=== PATIENT | male | born 1955 | race Caucasian/White ===

== ENCOUNTER 2017-05-26 13:37 | Day surgery (SDC) | payer BC ==
--- NOTE | 2017-05-14 07:41 | HP ---
CC: Dr. Deric Meza * ADMISSION HISTORY AND PHYSICAL: DATE OF ADMISSION/SURGERY: 05/26/17 ATTENDING SURGEON: Quincy Nava MD * (DICTATED BY FIDE CHILDS) PRIMARY CARE PHYSICIAN: Deric Meza MD CHIEF COMPLAINT: Umbilical hernia. HISTORY OF PRESENT ILLNESS: Mr. Holbrook is a pleasant 61-year-old gentleman, who was seen in the office last months in consideration for umbilical hernia repair. The patient apparently had his umbilical hernia for approximately 2 years now. He has been planning for watchful waiting until recently when the patient described being more bothered by his umbilical hernia. He reports that the hernia does not feel any bigger than it has been in the last year or so; however, he experiences occasional discomfort especially upon bending over or lifting heavy objects. That pain is usually alleviated by rest and denies any signs or symptoms of incarceration lately. He was seen recently by his primary care doctor, who encouraged him to get the hernia fixed if he experiences any worsening symptoms, for which he was seen by Dr. Nava last month to consider hernia repair. Since his last office visit, he denies any worsening symptoms. He denies any nausea, vomiting, abdominal distention, or changes in the bowel habits. He otherwise is a relatively active upper middle-age gentleman, who does a lot of workout outdoors. PAST MEDICAL HISTORY: Significant for hyperlipidemia and remote history of heart murmur and palpitation for which he had a complete cardiac workup 2 years ago with no remarkable findings. He denies any recent palpitation or chest pain. PAST SURGICAL HISTORY: Significant for tonsillectomy as a child and left ankle surgery back in 1998 as well as knee arthroscopy with meniscus repair last year. CURRENT MEDICATIONS: His medications at home include: 1. Atorvastatin 10 mg p.o. q. day. 2. Multivitamin 1 tablet q. day. ALLERGIES: He has no known drug allergies. FAMILY HISTORY: Noncontributory. SOCIAL HISTORY: The patient has never smoked. He rarely consumes alcohol and caffeine intake is minimal. REVIEW OF SYSTEMS: See HPI, otherwise negative. He denies any headache, dizziness, blurred vision, or double vision. No sore throat, cough, wheezing, chest pain, or shortness of breath. He denies any back pain, flank pain, dysuria, hematuria, or urinary frequency. He admits to umbilical hernia with occasional pain but denies any increased bulge, changes in the bowel habits, nausea, vomiting. No fever, chills, weight loss, or night sweats. PHYSICAL EXAMINATION GENERAL: He is a pleasant, healthy-appearing, 61-year-old gentleman in no acute distress or discomfort. VITAL SIGNS: Revealed blood pressure of 142/72, respiration of 16, temperature of 98.3, pulse of 60, and he is 5 feet 10 inches tall, weighs 160 pounds with BMI of 23. HEENT: Head is normocephalic, atraumatic. Sclerae anicteric. PERRLA. EOMs intact. Oropharynx is pink and moist with no exudate. NECK: Supple. Trachea midline. No cervical adenopathy noted. LUNGS: Clear to auscultation bilaterally. HEART: Regular rate and rhythm. Normal S1 and S2 without rubs, murmurs, or gallops. BACK: With normal curvature. No CVA tenderness. ABDOMEN: Soft, nontender, and nondistended. The patient was examined in supine position and noted to have a small umbilical hernia measuring approximately 2 cm with fatty contents, appears to be easily reducible. There was no tenderness noted upon reducing the hernia. There is no overlying skin changes or other hernias noted. No masses or hepatosplenomegaly. EXTREMITIES: Without cyanosis, clubbing, or edema. NEUROLOGIC: Grossly intact. RECTAL EXAM: Deferred at this time. IMPRESSION: A 61-year-old gentleman with longstanding history of umbilical hernia with worsening pain in the past few months. PLAN: We went on and discussed with the patient proceeding with umbilical hernia repair. He is scheduled to have his hernia repaired by Dr. Nava on with possible use of mesh. The rationale, indication, risks, and benefits of surgery were discussed with him today. Risks include but not limited to infection, bleeding, or injury to adjacent structures. He appears to understand and wishes to proceed as outlined. He already has a script for [place] to use as needed for pain for his postoperative period and we will see him back in the office a week after his surgery for a routine followup. FIDE CHILDS [id number]/[facility] #: [id number] [facility]PITALBasilio
[~2017-05-26 13:37] MED LIST: Buffered Lidocaine 0.9% SYRIN* 5 ML/SYR SYRINGE INTRADERM ONE; DiMENhydriNATE IV* 50 MG/ML VIAL IV PUSH PRN; Famotidine IV* 10 MG/ML 2 ML (20 mg) IV ONE; Morphine INJ* 2 MG/ML 1 ML CARPUJECT IV PRN; Naloxone* 0.4 MG/ML 1 ML VIAL IV PRN; PROCHLORPERAZINE INJ 5 MG/ML 2 ML VIAL IV PRN; fentaNYL* 50 MCG/ML 2 ML VIAL (100 MCG VIAL) IV PRN; oxyCODONE/Acetamin 5/325 MG* TAB PO PRN
[2017-05-26] MEDS ORDERED: ceFAZolin 1 GM in Dextrose (*) 2 GM/100 ML BAG IVPB ONE (13:44)
[2017-05-26] MEDS ORDERED: Famotidine IV* 10 MG/ML 2 ML (20 mg) ONE (13:44)
[2017-05-26] MEDS ORDERED: KETAMINE HCL* 50 MG/ML 10 ML VIAL ONE (14:50)
[2017-05-26] MEDS ORDERED: Midazolam* 1 MG/ML 10 ML VIAL (10 MG) ONE (14:50)
[2017-05-26] MEDS ORDERED: fentaNYL* 50 MCG/ML 2 ML VIAL (100 MCG VIAL) ONE (14:50)
[2017-05-26] MEDS ORDERED: Lidocaine 1% MPF wEPI 200,000* 30 ML SDV ONE (15:45)
[2017-05-26] MEDS ORDERED: Bacitracin OINTMENT* 0.5% 0.5 oz TUBE ONE (15:50)
[2017-05-26] MEDS ORDERED: Dexamethasone IV* 4 MG/ML 1 ML (4 MG) ONE (16:54)
[2017-05-26] MEDS ORDERED: Propofol* 10 MG/ML 20 ML BTL IV PUSH ONE (16:54)
[2017-05-26] MEDS ORDERED: Lidocaine 2% PF * 5 ML VIAL ONE (16:54)
[2017-05-26] MEDS ORDERED: Ondansetron INJ* 2 MG/ML VIAL ONE (16:54)
[2017-05-26] MEDS ORDERED: Ketorolac INJ* 30 MG/ML 1 ML VIAL ONE (17:00)
--- NOTE | 2017-05-26 17:19 | OP ---
Operative Report - Blank - Operative Report Date of Operation: 05/26/17 Note: Preop Dx: umbilical hernia Postop Dx: same Procedure: open repair umbilical hernia (primary repair) Anesthesia: local, MAC Surgeon: Brandy Asst: FIDE Navarro Fluids: 800 ml EBL: 20 ml Drains: none Specimen: none Findings: dictated
[2017-05-26 18:05] VITALS: BP 140/84
[2017-05-26] MEDS ORDERED: HYDROcodone/ACETAMIN 5-325 MG* 1 TAB ONE (18:12)
--- NOTE | 2017-06-17 03:01 | OP ---
CC: Dr. Sabino Cano * DATE OF OPERATION: 05/26/17 - SDS DATE OF : 53 SURGEON: Quincy Nava MD NURSE TRANSITION: FIED Price ANESTHESIA: Local MAC anesthesia. PRE-OP DIAGNOSIS: Umbilical hernia. POST-OP DIAGNOSIS: Umbilical hernia. OPERATIVE PROCEDURE: Open repair of umbilical hernia. IV FLUIDS: 800. ESTIMATED BLOOD LOSS: 20 cc. DRAINS: None. SPECIMEN: None. DESCRIPTION OF PROCEDURE: The patient was identified in the preoperative area. Consent signed. The patient was marked. He was taken to the operating room, placed on the operating table in supine position. Preoperative antibiotics given. Sequential devices were placed on bilateral lower extremities. General anesthesia was induced. The patient's abdomen was prepped and draped in the standard surgical fashion. Time-out was performed. The umbilical hernia was identified. An infraumbilical incision was made. This was deepened down to the anterior fascia inferiorly. We isolated the umbilical skin around the [place] drain and sharply dissected this from the hernia sac. Hernia sac was ligated, we did not send it for specimen. The defect appeared approximately 1 cm and made a decision to primarily close this. We utilized 0 Prolene sutures, utilizing 4 sutures in all and these were tied at the end in a simple fashion. The wound was then irrigated. Hemostasis achieved. Umbilical skin was tacked down with 2-0 Vicryl sutures and then we closed the skin with 3-0 Vicryl sutures subcutaneous layer and a 4-0 Monocryl subcuticular suture in a running fashion. Steri-Strips were applied. The patient tolerated the procedure well, was awoken up in the OR, and transferred to the PACU in stable condition. [id number]/[facility] #: [id number] [facility]
== END 2017-05-26 18:47 | disposition home or self-care (01) ==
LOC: OR 13:37
PROVIDERS: ATTEND Surgery
DX: K42.9 Umbilical hernia without obstruction or gangrene (principal); E78.5 Hyperlipidemia, unspecified
CPT/HCPCS: A9270-GY; J0690; J1100; J1885; J2001; J2250; J2405; J2704; J3010

== ENCOUNTER → 2018-11-16 06:37 | Day surgery (SDC) | payer BC ==
[~2018-11-16 06:37] MED LIST changes: +Acetaminophen TAB* 325 MG PO PRN; -Buffered Lidocaine 0.9% SYRIN* 5 ML/SYR SYRINGE INTRADERM ONE; +Buffered Lidocaine 1% SYRIN* 1 ML/SYRINGE INTRADERM ONE; +Cisatracurium* 2 MG/ML MDV 5 ML ONE; +Dexamethasone IV* 4 MG/ML 1 ML (4 MG) ONE; -Famotidine IV* 10 MG/ML 2 ML (20 mg) IV ONE; +Famotidine IV* 10 MG/ML 2 ML (20 mg) ONE; +HYDROcodone/ACETAMIN 5-325 MG* 1 TAB PO PRN; +Lactated Ringers 1000 ML Bag* 1,000 ML IV SCH; +Lidocaine 1% w EPI 1:100,000* 30 ML VIAL ONE; +Lidocaine 2% PF * 5 ML VIAL ONE; +Lidocaine 4% TOPICAL* 50 ML TOP.SOLN ONE; +Midazolam* 1 MG/ML 2 ML VIAL (2 MG) ONE; -Morphine INJ* 2 MG/ML 1 ML CARPUJECT IV PRN; +Ondansetron INJ* 2 MG/ML VIAL IV PRN; +Ondansetron INJ* 2 MG/ML VIAL ONE; +Oxymetazoline 0.05% NASAL SPR* 15 ML BTL ONE; -PROCHLORPERAZINE INJ 5 MG/ML 2 ML VIAL IV PRN; +Propofol* 10 MG/ML 20 ML BTL ONE; +Succinylcholine* 20 MG/ML 10 ML VIAL ONE; +diPHENhydraMINE IV* 50 MG/ML 1 ml VIAL (BENADRYL) IV PRN; +fentaNYL* 50 MCG/ML 2 ML VIAL (100 MCG VIAL) ONE; -oxyCODONE/Acetamin 5/325 MG* TAB PO PRN
[2018-11-16 12:19] VITALS: BP 153/90
--- NOTE | 2018-11-16 15:04 | OP ---
DATE OF OPERATION: 11/16/18 [facility] DATE OF BRIT: 53 SURGEON: Travis Murrell MD. PRE-OP DIAGNOSIS: Chronic maxillary ethmoid sinusitis. POST-OP DIAGNOSIS: Chronic maxillary ethmoid sinusitis. OPERATIVE PROCEDURE: Endoscopic sinus surgery on the right side with maxillary antrostomy and debridement and anterior ethmoidectomy under general endotracheal anesthesia. COMPLICATION: None. SPECIMEN: Right maxillary and ethmoid contents. DESCRIPTION OF PROCEDURE: The patient was taken to the operating room, placed in a supine position on the operating table. General anesthesia was induced. He was orotracheally intubated. His nose was packed with cottonoids impregnated with oxymetazoline and 4% lidocaine, and he was draped for the surgery. Under endoscopic guidance, surgery was performed. Immediately I saw thick inspissated mucus streaming from his middle meatus. His middle turbinate was injected with 1% lidocaine with 1:100,000 epinephrine, it was medialized, and then thick and inspissated mucus was suctioned out of his sinuses. The uncinate was injected and he was repacked. After several minutes, the curved seeker was used to find the ostium and the maxillary sinus and the sickle knife made anterior cut and then the uncinate process was grasped and removed. He was found to have inspissated mucus and polyps within the maxillary sinus. The ostium was debrided with the back biters to widen it and then the polyps were grasped and removed, clearing out the right maxillary sinus. The anterior bulla was entered with a curette and the bony spicule was debrided and removed. I made sure that there was no polypoid changes or obstruction in the nasofrontal duct. The Stammberger Sinu-Foam was placed lateral to the middle turbinate. The patient tolerated this procedure well, no complications, transferred to the recovery room in stable condition. [id number]/[facility] #: [id number] [facility]
== END | disposition home or self-care (01) ==
LOC: OR 06:37
PROVIDERS: ATTEND Otolaryngology
DX: J32.8 Other chronic sinusitis (principal); I49.3 Ventricular premature depolarization; K21.9 Gastro-esophageal reflux disease without esophagitis; K44.9 Diaphragmatic hernia without obstruction or gangrene
CPT/HCPCS: 88305; A9270-GY; J0330; J1100; J2250; J2405; J2704; J3010

== ENCOUNTER 2023-06-18 09:36 | Observation (INO) ==
[2023-06-18 10:46] LABS: ABS Lymphocytes 0.6 10^3/uL (1.0-4.8); ABS Monocytes 0.8 10^3/uL (0.0-1.1); ABS Neutrophils 4.7 10^3/uL (1.5-7.6); Eosinophil % 0.4 %; Hematocrit 44.9 % (38-53); Hemoglobin 15.2 g/dL (13.2-16.3); Lymphocyte % 9.5 %; Mean Corpuscular Hemoglobin 32.6 pg (27-33); Mean Corpuscular Hgb Conc 33.9 g/dL (31-36); Mean Corpuscular Volume 96.2 fL (80-97); Mean Platelet Volume 10.1 fL (7.5-11.2); Nucleated Red Blood Cells % 0.1 %/100WBC (0.0-0.8); Platelet Count 135 10^3/uL (150-450); Red Blood Count 4.67 10^6/uL (4.06-5.63); Red Cell Distribution Width 13.3 % (12-17); White Blood Count 6.1 10^3/uL (3.6-10.2)
[2023-06-18] MEDS: NS 0.9% 1000 ml BAG 1,000 ML IV ONE (11:32)
[2023-06-18 11:37] LABS: Calcium 9.3 mg/dL (8.6-10.3); Creatinine, Serum 1.09 mg/dL (0.67-1.17); Magnesium 1.8 mg/dL (1.9-2.7); Potassium 4.3 mmol/L (3.5-5.0); Total Bilirubin 1.1 mg/dL (0.2-1.0); eGFR CKD-EPI 73.9 (>60)
[2023-06-18 12:09] LABS: High Sensitivity Troponin 1 Hr 3 pg/mL (<20)
[2023-06-18] MEDS: Iohexol 350 (CONTRAST) 500 ML MDV IV ONE (13:08)
[2023-06-18] MEDS: Magnesium Sulfate 2 gm BAG 2 GM/50 ML BAG IVPB ONE (13:20)
[2023-06-18] MEDS: Enoxaparin 40 MG/0.4 ML SYR SUBCUT SCH (21:31)
[2023-06-19 06:36] LABS: ABS Basophils 0.1 10^3/uL (0.0-0.1); ABS Eosinophils 0.1 10^3/uL (0.0-0.5); ABS Lymphocytes 1.2 10^3/uL (1.0-4.8); ABS Monocytes 0.7 10^3/uL (0.0-1.1); ABS Neutrophils 3.8 10^3/uL (1.5-7.6); Hematocrit 44.6 % (38-53); Hemoglobin 15.3 g/dL (13.2-16.3); Mean Corpuscular Hemoglobin 32.9 pg (27-33); Mean Corpuscular Hgb Conc 34.3 g/dL (31-36); Mean Corpuscular Volume 95.9 fL (80-97); Mean Platelet Volume 10.3 fL (7.5-11.2); Nucleated Red Blood Cells % 0.1 %/100WBC (0.0-0.8); Platelet Count 126 10^3/uL (150-450); Red Blood Count 4.65 10^6/uL (4.06-5.63); Red Cell Distribution Width 13.3 % (12-17); White Blood Count 5.9 10^3/uL (3.6-10.2)
[2023-06-19 06:52] LABS: Albumin 3.7 g/dL (3.2-5.2); Albumin/Globulin Ratio 1.9 (1-3); Calcium 8.7 mg/dL (8.6-10.3); Creatinine, Serum 0.94 mg/dL (0.67-1.17); Globulin 1.9 g/dL (2-4); Total Bilirubin 0.8 mg/dL (0.2-1.0); Total Protein 5.6 g/dL (6.4-8.9); eGFR CKD-EPI 88.3 (>60)
[2023-06-19] MEDS: Vitamin THERAPEUTIC TAB PO SCH (09:22)
[2023-06-19 09:33] VITALS: BP 125/78
[2023-06-19 13:03] LABS: Magnesium 1.9 mg/dL (1.9-2.7)
== END 2023-06-19 13:30 | disposition home or self-care (01) ==
LOC: EDHOLD 09:36 → ED 09:36 → SUATTDRO 13:32 → MEDTELE 16:20
PROVIDERS: ADMIT Internal Medicine; ATTEND Internal Medicine